=== PATIENT | male | born 1985 | race Caucasian/White ===

== ENCOUNTER 2017-03-01 18:49 | Emergency (ER) | payer MEDICAID ==
[~2017-03-01] VITALS: Ht 172.7 cm; Wt 84.5 kg
[~2017-03-01 18:49] MED LIST: IBUP-2354 PO
[2017-03-01 20:57] VITALS: BP 132/74
== END 2017-03-01 21:24 | disposition home or self-care (01) ==
LOC: EMS 18:51
DX: S93.602A Unspecified sprain of left foot, initial encounter (principal); X58.XXXA Exposure to other specified factors, initial encounter; Y93.71 Activity, boxing; Y92.89 Other specified places as the place of occurrence of the external cause; Y99.8 Other external cause status
CPT/HCPCS: 99284

== ENCOUNTER 2017-09-16 13:36 | Emergency (ER) | payer MEDICAID ==
[~2017-09-16] VITALS: Ht 172.7 cm; Wt 86.3 kg
[2017-09-16 15:24] VITALS: BP 128/77
== END 2017-09-16 15:55 | disposition home or self-care (01) ==
LOC: EMS 13:36
DX: B34.9 Viral infection, unspecified (principal)
CPT/HCPCS: 99283

== ENCOUNTER 2017-12-21 10:19 | Emergency (ER) | payer MEDICAID ==
[~2017-12-21] VITALS: Ht 172.7 cm; Wt 82.5 kg
[2017-12-21 11:48] LABS: BILIRUBIN,URINE NEGATIVE (NEGATIVE); GLUCOSE, URINE (UA) NEGATIVE (NEGATIVE); KETONES,URINE NEGATIVE (NEGATIVE); LEUKOCYTE ESTERASE ,URINE MODERATE (NEGATIVE); NITRATE,URINE NEGATIVE (NEGATIVE); OCCULT BLOOD,URINE NEGATIVE (NEGATIVE); PROTEIN,URINE NEGATIVE (NEGATIVE); UROBILINOGEN,URINE 0.2 mg/dL (<=1.0)
[2017-12-21 11:53] LABS: APPEARANCE,URINE HAZY (CLEAR)
[2017-12-21 11:55] LABS: BACTERIA,URINE Few /HPF (None Seen); RBC,URINE None Seen /HPF (0-2); WBC,URINE 51-100 /HPF (0-5)
[2017-12-21 11:59] LABS: SQUAMOUS EPITHELIAL CELL,UR Rare /LPF (None Seen)
[2017-12-21 13:12] VITALS: BP 125/66
== END 2017-12-21 13:13 | disposition home or self-care (01) ==
LOC: EMS 10:19
DX: N50.811 Right testicular pain (principal)
CPT/HCPCS: 76870; 87086; 99285

== ENCOUNTER 2018-10-11 21:26 | Emergency (ER) | payer MEDICAID ==
[~2018-10-11] VITALS: Ht 172.7 cm; Wt 81.8 kg
[2018-10-11] MEDS ORDERED: IBUPROFEN 800 MG TABLET PO ONE (22:30)
[2018-10-11 22:54] VITALS: BP 127/62
== END 2018-10-11 23:11 | disposition home or self-care (01) ==
LOC: EMS 21:29
DX: S63.602A Unspecified sprain of left thumb, initial encounter (principal); W01.0XXA Fall on same level from slipping, tripping and stumbling without subsequent striking against object, initial encounter; Y93.89 Activity, other specified; Y92.89 Other specified places as the place of occurrence of the external cause; Y99.8 Other external cause status

== ENCOUNTER 2019-12-23 18:09 | Emergency (ER) | payer MEDICAID ==
[~2019-12-23] VITALS: Ht 170.2 cm; Wt 79.5 kg
[2019-12-23 18:15] VITALS: BP 128/86
[2019-12-23] MEDS ORDERED: IBUPROFEN 600 MG TABLET PO ONE (18:45)
[2019-12-23] MEDS ORDERED: LIDOCAINE 5% TRANSDERMAL PATCH TD ONE (18:45)
[2019-12-23] MEDS ORDERED: METHOCARBAMOL 500 MG TABLET PO ONE (18:45)
== END 2019-12-23 19:04 | disposition home or self-care (01) ==
LOC: EMS 18:09
DX: S39.012A Strain of muscle, fascia and tendon of lower back, initial encounter (principal); X58.XXXA Exposure to other specified factors, initial encounter; Y93.89 Activity, other specified; Y92.89 Other specified places as the place of occurrence of the external cause; Y99.8 Other external cause status
CPT/HCPCS: Z7502; Z7610

== ENCOUNTER 2022-08-28 12:29 | Emergency (ER) | payer MEDICAID ==
[~2022-08-28] VITALS: Ht 172.7 cm; Wt 73.6 kg
[2022-08-28] MEDS ORDERED: IBUPROFEN 600 MG TABLET PO ONE (13:00)
[2022-08-28] MEDS ORDERED: PERTUSS(ACELL),DIPH,TET VAC/PF 0.5 ML SYRINGE IM. ONE (13:00)
[2022-08-28 13:50] VITALS: BP 122/87
== END 2022-08-28 14:01 | disposition home or self-care (01) ==
LOC: EMS 12:29
DX: S60.222A Contusion of left hand, initial encounter (principal); X58.XXXA Exposure to other specified factors, initial encounter; Y93.89 Activity, other specified; Y92.89 Other specified places as the place of occurrence of the external cause; Y99.8 Other external cause status
CPT/HCPCS: 90471; 90715; 99283

== ENCOUNTER 2022-10-01 19:14 | Emergency (ER) | payer MEDICAID ==
[~2022-10-01] VITALS: Ht 172.7 cm; Wt 79.5 kg
[2022-10-01] MEDS ORDERED: KETOROLAC TROMETHAMINE 30 MG/ML VIAL IM ONE (20:45)
[2022-10-01 22:00] VITALS: BP 127/73
== END 2022-10-01 22:00 | disposition home or self-care (01) ==
LOC: EMS 19:18
DX: S43.004A Unspecified dislocation of right shoulder joint, initial encounter (principal); X50.9XXA Other and unspecified overexertion or strenuous movements or postures, initial encounter; Y93.89 Activity, other specified; Y92.89 Other specified places as the place of occurrence of the external cause; Y99.8 Other external cause status
CPT/HCPCS: 99283; 73030; J1885

== ENCOUNTER 2023-02-16 17:22 | Emergency (ER) | payer MEDICAID ==
[~2023-02-16] VITALS: Ht 172.7 cm; Wt 77.3 kg
[2023-02-16 17:29] VITALS: TEMP 99
[2023-02-16] MEDS ORDERED: LIDOCAINE 5% TRANSDERMAL PATCH TD ONE (19:30)
[2023-02-16 21:00] VITALS: BP 119/69; PULSE 59; RESP 16
== END 2023-02-16 21:00 | disposition home or self-care (01) ==
LOC: EMS 17:30
DX: S20.212A Contusion of left front wall of thorax, initial encounter (principal); W50.0XXA Accidental hit or strike by another person, initial encounter; Y93.89 Activity, other specified; Y92.89 Other specified places as the place of occurrence of the external cause; Y99.8 Other external cause status
CPT/HCPCS: 71101; 99283